=== PATIENT | male | born 1995 | race Caucasian/White ===

== ENCOUNTER 2018-02-01 16:13 | Emergency (ER) | payer OTHER ==
[~2018-02-01] VITALS: Ht 190.5 cm; Wt 114.3 kg
[2018-02-01 16:26] VITALS: Ht 190.5 cm; Wt 114.3 kg
[2018-02-01 18:10] VITALS: BP 134/78
== END 2018-02-01 18:10 | disposition home or self-care (01) ==
LOC: ED 16:13
DX: T24.101A Burn of first degree of unspecified site of right lower limb, except ankle and foot, initial encounter (principal); X08.8XXA Exposure to other specified smoke, fire and flames, initial encounter; Y93.89 Activity, other specified; Y92.89 Other specified places as the place of occurrence of the external cause; Y99.8 Other external cause status
CPT/HCPCS: 90715